=== PATIENT | female | born 2000 | race Caucasian/White ===

== ENCOUNTER 2019-12-20 18:49 | Emergency (ER) | payer SELFPAY ==
[2019-12-20 18:52] VITALS: BP 140/93; PULSE 75; RESP 18; TEMP 37.3; O2SAT 100
[2019-12-20 19:10] LABS: Add Urine Microscopic? NO; Appearance Urine Clear (Clear); Bilirubin Urine Negative (Negative); Blood Urine Negative (Negative); Color Urine Yellow (Yellow); Glucose Urine UA Negative (Negative); Ketones Urine Negative (Negative); Leukocyte Esterase Ur Negative LEU/UL (Negative); Nitrate Urine Negative (Negative); Protein Urine Negative (Negative); Specific Grav Ur 1.017 (1.001-1.035); Urobilinogen Urine Negative mg/dL (<2.0)
--- NOTE | 2019-12-20 19:54 | ED.BACK ---
HPI - Back Pain/Injury General Chief Complaint: Back Pain/Injury Stated Complaint: Possible Kidney Infection Time Seen by Provider: 12/20/19 19:54 History of Present Illness HPI Narrative: Back pain for the past few days. She was started on an antibiotic 4 days ago for a UTI. TThe pain started as soon as she started taking the antibiotic. She has not urinary symptoms at this point, but she is worried that she may have a kidney infection. No fever, vomiting, trauma. Related Data Home Medications Medication Instructions Recorded Confirmed No Home Medications 05/31/19 12/20/19 Allergies Allergy/AdvReac Type Severity Reaction Status Date / Time No Known Allergies Allergy Verified 12/20/19 19:54 Review of Systems Review of Systems: All systems reviewed & are unremarkable except as noted in HPI and below Constitutional: Constitutional: Denies fever(s) Cardiovascular: Cardiovascular: Denies chest pain Respiratory: Respiratory: Denies dyspnea Gastrointestinal: Gastrointestinal: Denies abdominal pain, Denies constipation, Denies diarrhea, Reports nausea and Denies vomiting Genitourinary: Genitourinary: Denies hematuria, Denies nocturia and Denies dysuria Musculoskeletal: Musculoskeletal: Reports back pain Neurologic: Denies numbness and Denies weakness [facility] Social History Social History Gender identity (if verbalized by the patient): Female Exam Const: General: healthy appearing, no acute distress and alert Orientation/consciousness: patient oriented x3 HENMT: Head: normal to inspection Neck: Neck: normal visual inspection and no lymphadenopathy Chest: Chest palpation & inspection: no tenderness Resp: Effort & Inspection: normal respiratory effort Auscultation: clear to auscultation bilaterally, no rales, no rhonchi and no wheezes Cardio: Jugular venous distension: no JVD Rate: regular rate Rhythm: regular rhythm Heart sounds: no murmurs GI: Inspection: non-distended GI Palp: Yes Soft to palpation and No Tenderness to palpation present (GI) Back/Spine/Pelvis: Other: nontender Skin: General skin exam: normal color Neuro: General: patient oriented x3 and moves all extremities Speech: normal speech Extrem: General: no edema Psych: Appearance: well kempt Affect: normal affect Course Vital Signs Vital signs: Vital Signs Temperature 37.3 C 12/20/19 18:52 Pulse Rate 75 12/20/19 18:52 Respiratory Rate 18 12/20/19 18:52 Blood Pressure 140/93 H 12/20/19 18:52 Pulse Oximetry 100 12/20/19 18:52 Temperature 37.3 C 12/20/19 18:52 Pulse Rate 83 12/20/19 20:21 Respiratory Rate 16 12/20/19 20:21 Blood Pressure 148/78 H 12/20/19 20:21 Pulse Oximetry 100 12/20/19 20:21 MDM - Back Pain/Injury MDM Narrative Medical decision making narrative: Pain seems to be musculoskeletal. Pyelo unlikely given no urinary symoptoms and normal UA. Lab Data Attestation: I reviewed the patient's lab results. Labs: Lab Results 12/20/19 Range/Units 18:57 Urine Color Yellow (Yellow) Urine Appearance Clear (Clear) Urine pH 5.0 (5.0-9.0) Ur Specific [place] 1.017 (1.001-1.035) Urine Protein Negative (Negative) mg/dL Urine Glucose (UA) Negative (Negative) mg/dL Urine Ketones Negative (Negative) mg/dL Ur Blood (Man) Negative (Negative) Urine Nitrate Negative (Negative) Urine Bilirubin Negative (Negative) Urine Urobilinogen Negative (<2.0) mg/dL Leukocyte Esterase Rfl Negative (Negative) KIARA/UL UCG Bedside Result Negative Reference Range: Negative Discharge Plan Discharge Clinical Impression: Low back pain Patient Disposition: Home, Self-Care Condition: Stable Instructions: Acute Low Back Pain (ED) Prescriptions: New ibuprofen 600 mg tablet 600 mg PO QID PRN (Reason: pain) Qty: 30 RF: 0 cyclobenzaprine 10 mg tablet
[2019-12-20 20:21] VITALS: BP 148/78; PULSE 83; RESP 16; O2SAT 100
== END 2019-12-20 20:23 | disposition home or self-care (01) ==
PROVIDERS: Emergency Medicine; Emergency Provider Emergency Medicine
DX: M54.5 Low back pain (principal)
CPT/HCPCS: 81003; 81025; 99283

== ENCOUNTER 2022-11-20 13:00 | Emergency (ER) | payer BC, SELFPAY ==
--- NOTE | ~2022-11-20 | XR_ITS ---
Portable chest x-ray Comparison: None Clinical History: Chest pain Findings: Lungs are clear, without focal consolidation or pleural effusion. Cardiomediastinal silho uette is unremarkable. Bones and soft tissues are unremarkable. Impression: Clear lungs. Reviewed, dictated and finalized at location M. Impression: Clear lungs.
--- NOTE | 2022-11-20 13:02 | ECG_ITS ---
Measurements Intervals [place] Rate: 54 P: 37 AL: 150 QRS: 54 QRSD: 104 T: 31 QT: 410 QTc: 392 Interpretive Statements SINUS BRADYCARDIA WITH SINUS ARRHYTHMIA INCOMPLETE RIGHT BUNDLE BRANCH BLOCK BORDERLINE ECG COMPARED TO ECG 05/31/2019 17:04:33 SINUS ARRHYTHMIA NOW PRESENT Electronically Signed On 11-20-2022 13:19:18 CDT by Gatito Mason D.O.
[2022-11-20 13:15] VITALS: BP 138/83; PULSE 67; RESP 16; TEMP 36.8; O2SAT 99
[2022-11-20 13:19] VITALS: PULSE 70; O2SAT 95
[2022-11-20 13:30] VITALS: RESP 15; O2SAT 100
[2022-11-20 13:37] LABS: Basophils Percent Auto 0.5 % (0.2-1.2); Eosinophils Absolute Auto 0.1 K/mm3 (0-0.3); Eosinophils Percent Auto 1.5 % (0-4.4); Hematocrit 42.8 % (37.0-47.0); Hemoglobin 14.9 g/dL (12.0-15.0); Immature Granulocyte Absolute 0.01 K/mm3 (0.00-0.031); Immature Granulocyte Percent A 0.1 % (0-0.5); Lymphocytes Absolute Auto 1.43 K/mm3 (0.9-3.2); Lymphocytes Percent Auto 16.4 % (18.3-44.2); Mean Corpuscular HGB Conc 34.8 g/dl (32-36); Mean Corpuscular Hemoglobin 30.3 pg (26-34); Mean Platelet Volume 11.7 fl (7.4-10.4); Monocytes Absolute Auto 0.5 K/mm3 (0.1-0.6); Monocytes Percent Auto 5.4 % (2.6-8.5); Neutrophils Absolute Auto 6.6 K/mm3 (1.3-6.7); Neutrophils Percent Auto 76.1 % (45.5-73.1); Platelet Count Result 191 k/mm3 (150-375); Red Blood Count 4.92 M/mm3 (4.2-5.4); White Blood Count 8.7 K/mm3 (4.5-10.0)
[2022-11-20 13:44] LABS: Alanine Aminotransferase 18 U/L (6-35); Albumin Level 4.5 g/dL (3.5-5.1); Alkaline Phosphatase 54 U/L (38-126); Anion Gap 10 mmol/L (8-16); Aspartate Amino Transferase 22 U/L (14-36); Blood Urea Nitrogen 9 mg/dL (7-17); Calcium 9.3 mg/dL (8.4-10.2); Carbon Dioxide 25 mmol/L (22-30); Chloride 104 mmol/L (98-107); Estimated CRCL calculation 119 ml/min; Estimated Glomerular Filt Rate > 60; Glucose 103 mg/dL (65-110); Lipase 41 U/L (23-300); Potassium 3.9 mmol/L (3.4-5.0); Sodium 139 mmol/L (137-145)
[2022-11-20 13:45] VITALS: PULSE 65; RESP 17; O2SAT 100
[2022-11-20 13:46] VITALS: BP 127/66; PULSE 66; RESP 16; O2SAT 100
[2022-11-20 13:51] LABS: Prothrombin Time 13.7 Seconds (11.1-14.7)
[2022-11-20 13:52] LABS: Partial Thromboplastin Time 30.1 SECONDS (22.3-36.8)
[2022-11-20 13:56] LABS: Troponin I < 0.012 ng/mL (0.000-0.034)
--- NOTE | 2022-11-20 15:03 | ED.CHESTPAIN ---
HPI - Chest Pain General Chief Complaint: Chest Pain Stated Complaint: something is wrong with my chest Time Seen by Provider: 11/20/22 14:00 Source: patient Mode of arrival: ambulatory Limitations: no limitations History of Present Illness HPI narrative: Patient is a 22-year-old female, with past medical history of ADHD and anxiety, who presents to the ED with report of chest pain. Patient reports she was feeling increasingly anxious last night. She has been having several family stressors at home. She reports her sister has been dealing with mental health issues and they believe she is in a current psychosis. Her sister returned to their home last night and patient states it has been very triggering for her. Patient does have history of anxiety and is prescribed propranolol as needed. When the events transpired last night, patient began feeling tightness in her chest, which she states felt related to her anxiety. She tried taking her propranolol without improvement. The chest tightness persisted into today, which prompted her presentation. Patient states chest tightness resolved upon arrival to the ED. She denies any shortness of breath, pain or swelling in her lower extremities, abdominal pain, nausea, vomiting. She denies HI, SI, AVH. Related Data Home Medications Medication Instructions Recorded Confirmed lisdexamfetamine 40 mg capsule mg 11/20/22 11/20/22 (Vyvanse) propranolol 10 mg tablet mg 11/20/22 Allergies Allergy/AdvReac Type Severity Reaction Status Date / Time No Known Allergies Allergy Verified 11/20/22 13:16 Review of Systems Review of Systems: CONSTITUTIONAL: Denies fever, chills, or sweats. EYES: Denies visual changes. CARDIOVASCULAR: See HPI. RESPIRATORY: Denies cough or dyspnea. GASTROINTESTINAL: Denies abdominal pain, nausea, vomiting. NEUROLOGIC: Denies headache, numbness, or weakness. PSYCHIATRIC: See HPI. All systems reviewed & are unremarkable except as noted in HPI and below PMFSH Past Medical History Medical History (Updated 11/20/22 @ 20:27 by Samanta Buenrostro PA-C) Anxiety Social History Social History Gender identity (if verbalized by the patient): Female Exam Narrative: GENERAL: Well appearing, obese with BMI of 32.6, non-toxic, in no acute distress. HEAD: Normocephalic, atraumatic. NECK: Supple. No adenopathy, no masses. RESPIRATORY: Airway patent, respirations nonlabored. Clear to auscultation bilaterally, no rales, rhonchi, wheezing. CARDIOVASCULAR: Regular rate and rhythm without murmurs, rubs, or gallops. Radial pulses 2+ and equal bilaterally. ABDOMINAL: Soft, nontender, nondistended, no hepatosplenomegaly. Normoactive BS. MUSCULOSKELETAL: Moves all extremities. Strength/ROM intact without gross deformities. No edema. No calf tenderness. SKIN: Warm, dry, normal color. No rashes. NEURO: A&O X3. Speech clear. Cranial nerves II-XII grossly intact. Steady gait. No ataxic movements. PSYCHIATRIC: Anxious. Normal interaction. Course Vital Signs Vital signs: Vital Signs Temperature 98.2 F 11/20/22 13:15 Pulse Rate 67 11/20/22 13:15 Respiratory Rate 16 11/20/22 13:15 Blood Pressure 138/83 11/20/22 13:15 Pulse Oximetry 99 11/20/22 13:15 Oxygen Delivery Room Air 11/20/22 13:15 Temperature 98.2 F 11/20/22 13:15 Pulse Rate 66 11/20/22 13:46 Respiratory Rate 16 11/20/22 13:46 Blood Pressure 127/66 11/20/22 13:46 Pulse Oximetry 100 11/20/22 13:46 Oxygen Delivery Room Air 11/20/22 13:15 MDM - Chest Pain MDM Narrative Medical decision making narrative: Patient presented to ED with chest tightness, anxiety. Patient's vital stable upon arrival. Patient admits to having anxiety and feeling that her chest pain was related to the anxiety. Denies any current chest pain since being in the ED. Patient's EKGs and labs are without significant high r
== END 2022-11-20 15:28 | disposition home or self-care (01) ==
PROVIDERS: Emergency Medicine; Emergency Provider Physician Assistant; PCP Family Medicine
DX: R07.89 Other chest pain (principal); F41.9 Anxiety disorder, unspecified; F90.9 Attention-deficit hyperactivity disorder, unspecified type; R00.1 Bradycardia, unspecified; I45.10 Unspecified right bundle-branch block
CPT/HCPCS: 36415; 71045; 80053; 83690; 84484; 85025; 85610; 85730; 93005; 99284